=== PATIENT | female | born 1955 | race Caucasian/White ===

== ENCOUNTER 2024-01-13 18:33 | Emergency (ER) | payer MEDICARE, SELFPAY ==
[2024-01-13] VITALS (14 sets, daily range): BP systolic 128–145; BP diastolic 70–82; PULSE 87–96; RESP 18; TEMP 36.9; O2SAT 95–99; BMI 27.4
--- NOTE | 2024-01-13 18:47 | ED_ITS ---
HPI - General Adult General Date Seen: 01/13/24 Chief complaint: Shortness of Breath/Dyspnea Stated complaint: Shortness of breath, elevated d dimer Time Seen by Provider: 01/13/24 18:42 History of Present Illness HPI narrative: 68-year-old female who has a history of hypertension, hypothyroidism, depression, sensorineural hearing loss who is sent to the ER today for abnormal D-dimer. She was evaluated in her primary clinic ([facility], Dr. Clements) yesterday for symptoms of chest tightness, back tightness, shortness of breath that have actually been ongoing since September. Lab workup today showed an abnormal D-dimer so she was referred to the ER. Per medical record-through [facility] care link This all started the beginning of the year. Has a heaviness in chest with shortness of breath. Neck is hurting all the time. Shoulders are hurting. This is happening every day. Takes 2 tylenol in the mornings. Has been having headaches as well. Gets numbness in side of face sometimes as well. Sometimes has a hard time walking. Seems to have a lot of stress in life Goldie Artis is a 68 y.o. female with a history of hypertension, hypothyroidism, and depression, who presents for chest heaviness and shortness of breath intermittently over the last several months but slowly becoming more persistent and noticeable, now starting to be a little bit exertional at times as well. Occasionally she will get sharp pains in her chest but these generally are not exertional. She also continues to have a neck ache that almost feels stiff like she slept wrong. However she will also have discomfort over the back of both of her shoulders and upper back that sometimes radiate into her neck and head. At times she will have a tingling sensation in her facial cheeks that can radiate into her jaw and arms but this seems random and can switch between right and left side. Occasionally she will get a little dizzy and lightheaded. She also will have intermittent headaches at times. She denies any change in vision or speech, weakness in her extremities, or any other neurologic symptoms at this time. Denies any increased leg swelling. She denies any history of asthma, COPD, or tobacco use. ? [place] because she also care takes for her with Alzheimer's. She also recently was caring for her sister who also has Alzheimer's at her house, and this was for a couple of months and she just left their house. She admits to a lot of physical labor and also a lot of stress. ? She does have 2 younger brothers who both had 95% plus blocked arteries, she thinks perhaps in their carotid. One of them drinks alcohol and the other smokes. Her dad had open heart surgery and valve replacement around age 75. Her mom has had strokes. Her grandmother from cardiac cause. ... Labs showed: WBC 8.3, hemoglobin 13.5, platelet count 315 D-dimer 1.5 ProBNP 134 Symptoms are not consistent with an acute cardiac etiology at this time. Patient is reassured. However, I am concerned for possible underlying cardiac cause though other considerations would be pulmonary embolism, anemia, stress/depression, musculoskeletal causes, among others. Fortunately she is hemodynamically stable here today, blood pressure seems to be well-controlled, and she reports good O2 saturation at home as well. EKG reveals NSR and appears unchanged from last EKG today. Overall this is all reassuring Was referred to ER for abnormal D Dimer Related Data Home Medications Medication Instructions Recorded Confirmed aspirin 81 mg capsule 81 mg PO DAILY 01/13/24 01/13/24 atenolol 100 mg tablet 100 mg PO DAILY 01/13/24 01/13/24 calcium 600 mg capsule 600 mg PO DAILY 01/13/24 01/13/24 cholecalciferol (vitamin D3) 25 25 mcg PO DAILY 01/13/24 01/13/24 mcg (1,000 unit) capsule (Vitamin D3) levothyroxine 50 mcg tablet 50 mcg PO QAM 01/13/24 01/13/24 lisinopril 20 mg tablet 20 mg PO DAILY 01/13/24 01/13/24 rosuvastatin 5 mg tablet 5 mg PO QPM 01/13/24 01/13/24 torsemide 20 mg tablet 20 mg PO DAILY 01/13/24 01/13/24 Allergies Allergy/AdvReac Type Severity Reaction Status Date / Time No Known Drug Allergies Allergy Verified 01/13/24 20:00 [facility] Social History Smoking Status: Unknown if ever smoked Exam Const: Vital Signs, click to edit/add: Vital Signs - 24 hr 01/13/24 18:41 01/13/24 18:42 01/13/24 18:43 Temperature 98.5 F Pulse Rate 91 91 Pulse Rate [Pulse Oximeter] 90 Respiratory Rate 18 Blood Pressure 139/77 Blood Pressure [Ri ght Upper Arm] 139/77 Pulse Oximetry 96 97 97 Oxygen Delivery Me thod Room Air 01/13/24 18:45 01/13/24 19:00 01/13/24 19:01 Temperature Pulse Rate 89 90 90 Pulse Rate [Pulse Oximeter] Respiratory Rate Blood Pressure 145/82 H Blood Pressure [Ri ght Upper Arm] Pulse Oximetry 96 97 98 Oxygen Delivery Me thod 01/13/24 19:15 01/13/24 19:30 01/13/24 19:32 Temperature Pulse Rate 89 88 88 Pulse Rate [Pulse Oximeter] Respiratory Rate Blood Pressure 131/71 Blood Pressure [Ri ght Upper Arm] Pulse Oximetry 95 97 97 Oxygen Delivery Me thod 01/13/24 19:33 01/13/24 19:47 01/13/24 20:00 Temperature Pulse Rate 87 96 89 Pulse Rate [Pulse Oximeter] Respiratory Rate Blood Pressure Blood Pressure [Ri ght Upper Arm] Pulse Oximetry 96 97 99 Oxygen Delivery Me thod 01/13/24 20:01 01/13/24 20:15 Temperature Pulse Rate 90 93 Pulse Rate [Pulse Oximeter] Respiratory Rate Blood Pressure 128/70 Blood Pressure [Ri ght Upper Arm] Pulse Oximetry 98 97 Oxygen Delivery Me thod Course Vital Signs Vital signs: Initial Vital Signs Temperature 98.5 F 01/13/24 18:41 Temperature Source Temporal Artery Scan 01/13/24 18:41 Pulse Rate 90 01/13/24 18:41 Respiratory Rate 18 01/13/24 18:41 Blood Pressure 139/77 01/13/24 18:41 Blood Pressure Mean 97 01/13/24 18:41 Blood Pressure Position Semi-Fowlers 01/13/24 18:41 Pulse Oximetry 96 01/13/24 18:41 Oxygen Delivery Method Room Air 01/13/24 18:41 Vital Signs Temperature 98.5 F 01/13/24 18:41 Pulse Rate 90 01/13/24 18:41 Respiratory Rate 18 01/13/24 18:41 Blood Pressure 139/77 01/13/24 18:41 Pulse Oximetry 96 01/13/24 18:41 Oxygen Delivery Method Room Air 01/13/24 18:41 Temperature 98.5 F 01/13/24 18:41 Pulse Rate 93 01/13/24 20:15 Respiratory Rate 18 01/13/24 18:41 Blood Pressure 128/70 01/13/24 20:01 Pulse Oximetry 97 01/13/24 20:15 Oxygen Delivery Method Room Air 01/13/24 18:41 Medications Administered Medications: Discontinued Medications Generic Name Dose Route Start Last Admin Trade Name Baylee PRN Reason Stop Dose Admin Aspirin 162 mg 01/13/24 19:08 01/13/24 19:29 Aspirin 81 Mg Tab.Chew PO 01/13/24 19:09 162 mg ONCE ONE Administration Medical Decision Making MDM Narrative Medical decision making narrative: This patient presents to the ER today for evaluation of chest pain, shortness of breath, neck pain upper back pain ongoing for the past several weeks. She is referred to the ER today by her primary care office because she had an abnormal D-dimer drawn in clinic. Abnormal D-dimer raises concern for possible PE. CT PA is obtained and is fortunately normal. No evidence for PE, pneumonia, pneumothorax, pulmonary edema, pleural effusion, rib fractures. Mediastinum is normal on the CT scan so although this is not a dissection protocol, I think with several weeks of pain, likelihood of aortic dissection would be very low. At this point the risk of radiation and CT contrast associated with a repeat CT scan for aortic protocol would outweigh the benefit. Differential was broad. No evidence of palpitations, syncope or other cardiac dysrhythmia. We considered possible ACS, however workup with EKG and troponin is negative. Given time since onset of symptoms, I do not think the patient needs to be admitted for further sets of enzymes. EKG shows no evidence for pericarditis. Clinical presentation not suggestive of myocarditis. She is already scheduled for a treadmill stress echo through the [facility] next week. She will keep that appointment. Discussed the risk 1 stable angina and she will return to the ER for any worsening symptoms occur. No wheezing or bronchospasm to suggest COPD/asthma. No signs of chest wall cellulitis, shingles, injury. She does endorse substantial psychosocial stressors in her life so summer symptoms might be stress related, she believes. Incidental note is made of an axillary lymph node on the CT scan. She will follow-up with the [facility] office for recheck of her axillary lymph node. With reasonable clinical confidence, I think the patient is safe for outpatient follow up. Discussed return precautions. Questions answered. Patient voices comfort with the plan. Lab Data Labs: Lab Results 01/13/24 01/13/24 Range/Units 19:00 19:17 Sodium 140 (135-149) mmol/L Potassium 4.1 (3.6-5.1) mmol/L Chloride 100 (96-114) mmol/L Carbon Dioxide 28 (20-32) mmol/L Anion Gap 12 (7-15) mEq/L BUN 19 (7-30) mg/dL Creatinine 0.9 (0.5-1.5) mg/dL Estimated Creat Clear 49.70 Estimated GFR 69 ml/min Glucose 99 (60-115) mg/dL Calcium 9.4 (8.4-10.6) mg/dL Troponin I < 0.01 L (0.01-0.04) ng/mL POC Creatinine 1.2 (0.6-1.3) mg/dl Imaging Data CT scan - chest: Attestation: I have reviewed the pertinent imaging results. Radiologist's impression: IMPRESSION: No pulmonary embolism. No focal consolidations. Mildly prominent left axillary lymph node measuring 10 millimeters. Recommend clinical correlation. Discharge Plan Discharge Clinical Impression: Chronic dyspnea, Axillary adenopathy, Neck pain Patient Disposition: Home, Self-Care Condition: Stable Instructions: Lymphadenopathy (ED), Dyspnea (ED), Neck Pain (ED) Additional Instructions: The CT scan today looks good. You do not have any pneumonia, collapsed lung, or any signs of blood clots in your lung. The CT scan does show a lymph node in your left armpit. The cause of this is unclear. It could be real a reaction to a recent infection. Please follow-[facility] to have it rechecked. If you have worsening discomfort in your chest, trouble breathing, or any concerns, please come back to the ER right away. Please see your doctor line now within the next 3-5 days for recheck. Ask your doctor to arrange a stress test for your heart. Prescriptions: No Action torsemide 20 mg tablet 20 mg PO DAILY atenolol 100 mg tablet 100 mg PO DAILY lisinopril 20 mg tablet 20 mg PO DAILY levothyroxine 50 mcg tablet 50 mcg PO QAM rosuvastatin 5 mg tablet 5 mg PO QPM calcium 600 mg capsule 600 mg PO DAILY aspirin 81 mg capsule 81 mg PO DAILY cholecalciferol (vitamin D3) [Vitamin D3] 25 mcg (1,000 unit) capsule 25 mcg PO DAILY Follow Up/Referrals: Adri Davis MD [Primary Care Provider] - Stand Alone Forms: [employer] Info Instructions
--- NOTE | 2024-01-13 19:08 | CT_ITS ---
Patient: GINETTE DUNNE Facility:?[facility] Patient ID:?[id number] Site Patient ID:?[id number]. Site :?[id number] Study:?CT-Chest PE PROT 95ML ISOVUE 370-01/13/2024 7:57:25 PM Ordering Physician:?DR ANTONIO Final Report: INDICATION: Chest pain, back pain, abnormal D-dimer. TECHNIQUE: CT chest PE was acquired with 95 cc Isovue 370 IV contrast. COMPARISON: None. FINDINGS: Heart and vasculature: Contrast opacification of the pulmonary arterial tree is adequate. No sign of pulmonary embolism. Heart size is normal. Thoracic aorta and pulmonary artery are normal in caliber. Lungs and pleura: No suspicious nodules or infiltrates. Scattered atelectasis. No pleural effusions, pleural thickening, or pneumothorax. Lymph nodes/mediastinum: Mildly prominent left axillary lymph node measuring 10 millimeters (series 5/image 49). Otherwise no mediastinal, hilar, or axillary adenopathy. Chest wall: No masses. Upper abdomen: No acute or significant findings. Bones: Unremarkable for age. IMPRESSION: No pulmonary embolism. No focal consolidations. Mildly prominent left axillary lymph node measuring 10 millimeters. Recommend clinical correlation. Please note that all CT scans at this facility use dose modulation, iterative reconstruction, and/or weight-based dosing when appropriate to reduce radiation dose to as low as reasonably achievable. Dictated by Joe Cisneros MD @ 01/13/2024 8:11:16 PM Signed by:?Joe Cisneros MD @01/13/2024 8:11:16 PM (Electronic Signature)
[2024-01-13 19:18] LABS: Creatinine, Point-of-Care* 1.2 mg/dl (0.6-1.3)
[2024-01-13] MEDS: ASPIRIN 81 MG TAB.CHEW 162 MG PO (19:29)
[2024-01-13 19:37] LABS: Chloride* 100 mmol/L (96-114)
[2024-01-13 19:38] LABS: Potassium* 4.1 mmol/L (3.6-5.1); Sodium* 140 mmol/L (135-149)
[2024-01-13 19:41] LABS: Anion Gap 12 mEq/L (7-15); Blood Urea Nitrogen* 19 mg/dL (7-30); Calcium* 9.4 mg/dL (8.4-10.6); Carbon Dioxide* 28 mmol/L (20-32); Creatinine* 0.9 mg/dL (0.5-1.5); Estimated Glomerular Filt Rate 69 ml/min; Glucose* 99 mg/dL (60-115)
[2024-01-13 19:54] LABS: Troponin I* < 0.01 ng/mL (0.01-0.04)
--- NOTE | 2024-01-22 16:20 | ED_ITS ---
HPI - General Adult General Date Seen: 01/13/24 Chief complaint: Shortness of Breath/Dyspnea Stated complaint: Shortness of breath, elevated d dimer Time Seen by Provider: 01/13/24 18:42 History of Present Illness HPI narrative: This note is an addendum to my ER chart from 01/13/2024. I inadvertently omitted my physical exam from my previous note. Related Data Home Medications Medication Instructions Recorded Confirmed aspirin 81 mg capsule 81 mg PO DAILY 01/13/24 01/13/24 atenolol 100 mg tablet 100 mg PO DAILY 01/13/24 01/13/24 calcium 600 mg capsule 600 mg PO DAILY 01/13/24 01/13/24 cholecalciferol (vitamin D3) 25 25 mcg PO DAILY 01/13/24 01/13/24 mcg (1,000 unit) capsule (Vitamin D3) levothyroxine 50 mcg tablet 50 mcg PO QAM 01/13/24 01/13/24 lisinopril 20 mg tablet 20 mg PO DAILY 01/13/24 01/13/24 rosuvastatin 5 mg tablet 5 mg PO QPM 01/13/24 01/13/24 torsemide 20 mg tablet 20 mg PO DAILY 01/13/24 01/13/24 Allergies Allergy/AdvReac Type Severity Reaction Status Date / Time No Known Drug Allergies Allergy Verified 01/13/24 20:00 [facility] Social History Smoking Status: Unknown if ever smoked Exam Narrative: Exam Narrative: Constitutional: Appears well-developed and well-nourished. Alert. Conversant. Non toxic. HENT: Head: Atraumatic. Nose: Nose normal. Mouth/Throat: Oral mucosa is clear and moist. no trismus. Eyes: Conjunctivae normal. EOM normal. Pupils equal, round, and reactive to light. No scleral icterus. Neck: Normal range of motion. Neck supple. No tracheal deviation present. No JVD Cardiovascular: Normal rate, regular rhythm. No gallop. No friction rub. No murmur heard. Symmetric radial artery pulses Pulmonary/Chest: Effort normal. No stridor. No respiratory distress. No wheezes. No rales. No rhonchi . No tenderness. Abdominal: Soft.No distension. No mass. No tenderness. No rebound. No guarding. Musculoskeletal: RUE: Normal range of motion. No tenderness. No deformity LUE: Normal range of motion. No tenderness. No deformity RLE: Normal range of motion. No edema. No tenderness. No deformity LLE: Normal range of motion. No edema. No tenderness. No deformity Neurological: Alert and oriented to person, place, and time. Normal strength. CN II-VII intact. No sensory deficit. GCS eye subscore is 4. GCS verbal subscore is 5. GCS motor subscore is 6. Normal coordination Skin: Skin is warm and dry. No rash noted. No pallor. Normal capillary refill. Psychiatric: Normal mood. Normal affect. Course Vital Signs Vital signs: Initial Vital Signs Temperature 98.5 F 01/13/24 18:41 Temperature Source Temporal Artery Scan 01/13/24 18:41 Pulse Rate 90 01/13/24 18:41 Respiratory Rate 18 01/13/24 18:41 Blood Pressure 139/77 01/13/24 18:41 Blood Pressure Mean 97 01/13/24 18:41 Blood Pressure Position Semi-Fowlers 01/13/24 18:41 Pulse Oximetry 96 01/13/24 18:41 Oxygen Delivery Method Room Air 01/13/24 18:41 Vital Signs Temperature 98.5 F 01/13/24 18:41 Pulse Rate 90 01/13/24 18:41 Respiratory Rate 18 01/13/24 18:41 Blood Pressure 139/77 01/13/24 18:41 Pulse Oximetry 96 01/13/24 18:41 Oxygen Delivery Method Room Air 01/13/24 18:41 Temperature 98.5 F 01/13/24 18:41 Pulse Rate 93 01/13/24 20:15 Respiratory Rate 18 01/13/24 18:41 Blood Pressure 128/70 01/13/24 20:01 Pulse Oximetry 97 01/13/24 20:15 Oxygen Delivery Method Room Air 01/13/24 18:41 Medications Administered Medications: Discontinued Medications Generic Name Dose Route Start Last Admin Trade Name Freq PRN Reason Stop Dose Admin Aspirin 162 mg 01/13/24 19:08 01/13/24 19:29 Aspirin 81 Mg Tab.Chew PO 01/13/24 19:09 162 mg ONCE ONE Administration Medical Decision Making Lab Data Labs: Lab Results 01/13/24 01/13/24 Range/Units 19:00 19:17 Sodium 140 (135-149) mmol/L Potassium 4.1 (3.6-5.1) mmol/L Chloride 100 (96-114) mmol/L Carbon Dioxide 28 (20-32) mmol/L Anion Gap 12 (7-15) mEq/L BUN 19 (7-30) mg/dL Creatinine 0.9 (0.5-1.5) mg/dL Estimated Creat Clear 49.70 Estimated GFR 69 ml/min Glucose 99 (60-115) mg/dL Calcium 9.4 (8.4-10.6) mg/dL Troponin I < 0.01 L (0.01-0.04) ng/mL POC Creatinine 1.2 (0.6-1.3) mg/dl Discharge Plan Discharge Clinical Impression: Chronic dyspnea, Axillary adenopathy, Neck pain Patient Disposition: Home, Self-Care Condition: Stable Instructions: Lymphadenopathy (ED), Dyspnea (ED), Neck Pain (ED) Additional Instructions: The CT scan today looks good. You do not have any pneumonia, collapsed lung, or any signs of blood clots in your lung. The CT scan does show a lymph node in your left armpit. The cause of this is unclear. It could be real a reaction to a recent infection. Please follow-up with your [facility] to have it rechecked. If you have worsening discomfort in your chest, trouble breathing, or any concerns, please come back to the ER right away. Please see your doctor line now within the next 3-5 days for recheck. Ask your doctor to arrange a stress test for your heart. Prescriptions: No Action torsemide 20 mg tablet 20 mg PO DAILY atenolol 100 mg tablet 100 mg PO DAILY lisinopril 20 mg tablet 20 mg PO DAILY levothyroxine 50 mcg tablet 50 mcg PO QAM rosuvastatin 5 mg tablet 5 mg PO QPM calcium 600 mg capsule 600 mg PO DAILY aspirin 81 mg capsule 81 mg PO DAILY cholecalciferol (vitamin D3) [Vitamin D3] 25 mcg (1,000 unit) capsule 25 mcg PO DAILY Follow Up/Referrals: Adri Davis MD [Primary Care Provider] - Stand Alone Forms: [employer] Info Instructions
== END 2024-01-13 20:45 | disposition home or self-care (01) ==
PROVIDERS: Emergency Provider Emergency Medicine; PCP Family Medicine
DX: R59.0 Localized enlarged lymph nodes (principal); M54.2 Cervicalgia; R06.00 Dyspnea, unspecified
CPT/HCPCS: 36415; 71275; 80048; 82565; 84484; 93005; 99283; 99284; 99285; A9270; Q9967

== ENCOUNTER 2024-07-25 17:41 | Emergency (ER) | payer MEDICARE, SELFPAY ==
[2024-07-25 18:02] VITALS: BP 154/81; PULSE 64; RESP 18; TEMP 36.4; O2SAT 96; BMI 29.1
--- NOTE | 2024-07-25 18:27 | ED_ITS ---
HPI - Animal Bite General Time Seen by Provider: 18:27 Date Seen: 07/25/24 Chief Complaint: Animal Bite Stated Complaint: left hand lac Time Seen by Provider: 07/25/24 18:27 Source: patient, family and old records reviewed Mode of arrival: ambulatory Limitations: no limitations History of Present Illness HPI narrative: Goldie is a very pleasant 69-year-old female with not an up-to-date tetanus per her report who comes to the emergency room after experiencing a dog bite. Patient was noted to have 2 dogs at home that were fighting during feeding. She went to break them up and the dog bit her in the left hand. She shows me a picture of this and she has a lot of swelling in this area on the back of her left hand. She is able to move her fingers without difficulty. I initially see Goldie in the waiting room because our senses in the ED is high. She eventually is moved to room 1. We removed the bandage and she has a large a superficial flap tear on the dorsum of her left hand. She is able to flex and extend her fingers. She is able to make a fist. The dog that bit her is alone by herself and immunizations were updated in October of this year. She currently lives in [place] in [facility]. Related Data Home Medications ?Medication ?Instructions ?Recorded ?Confirmed aspirin 81 mg capsule 81 mg PO DAILY 01/13/24 01/13/24 atenolol 100 mg tablet 100 mg PO DAILY 01/13/24 01/13/24 calcium 600 mg capsule 600 mg PO DAILY 01/13/24 01/13/24 cholecalciferol (vitamin D3) 25 25 mcg PO DAILY 01/13/24 01/13/24 mcg (1,000 unit) capsule (Vitamin D3) levothyroxine 50 mcg tablet 50 mcg PO QAM 01/13/24 01/13/24 lisinopril 20 mg tablet 20 mg PO DAILY 01/13/24 01/13/24 rosuvastatin 5 mg tablet 5 mg PO QPM 01/13/24 01/13/24 torsemide 20 mg tablet 20 mg PO DAILY 01/13/24 01/13/24 Allergies Allergy/AdvReac Type Severity Reaction Status Date / Time No Known Drug Allergies Allergy Verified 01/13/24 20:00 Review of Systems Status of ROS: Reports: 6 or more systems reviewed and unremarkable except as noted in History and below PFSH PFSH Social History Smoking Status: Unknown if ever smoked Exam Narrative: Exam Narrative: Goldie is alert and oriented. She is very pleasant woman in no acute distress. No respiratory distress. Examination of the left hand shows a large your regular superficial skin tear half [place] measuring in total approximately 5 cm laceration. The edges are jagged. There are other superficial lacerations that are open gaping approximately 1 mm. No foreign bodies are noted. Gently I do peel back the flap and there is more skin that has curled up underneath. We were able to pull back the flap and irrigate copiously. Again no foreign bodies are noted. I then replaced the skin and actually it has come back to be very well-approximated although there is multiple irregular laceration within the skin edges. I then placed Steri-Strips around the area and there is good wound approximation. Patient is able to flex and extend her fingers and make a fist. No underlying a discomfort with these actions. Const: Vital Signs, click to edit/add: Vital Signs - 24 hr 07/25/24 18:02 Temperature 97.6 F Pulse Rate [Pulse Oximeter] 64 Respiratory Rate 18 Blood Pressure [Ri ght Upper Arm] 154/81 H Pulse Oximetry 96 Oxygen Delivery Me thod Room Air Documenting provider has reviewed patient's vital signs: yes Course Course ED Course: At this time I am pleasantly surprised that we were able to reapproximate the wound. The edges are very irregular. Given that this is an antibiotic bowl bite I would not recommend an occlusive dressing or gluing of this area. I would also recommend against suturing as this skin is very fragile and I do think that the stitches would pull through. We able to get very good wound approximation with the use of Steri-Strips. Given patient's exam do not feel the need to x-ray hand. There is no evidence of significant crush injury or foreign body. Vital Signs Vital signs: Initial Vital Signs Temperature 97.6 F 07/25/24 18:02 Temperature Source Temporal Artery Scan 07/25/24 18:02 Pulse Rate 64 07/25/24 18:02 Respiratory Rate 18 07/25/24 18:02 Blood Pressure 154/81 H 07/25/24 18:02 Blood Pressure Mean 105 07/25/24 18:02 Pulse Oximetry 96 07/25/24 18:02 Oxygen Delivery Method Room Air 07/25/24 18:02 Vital Signs Temperature 97.6 F 07/25/24 18:02 Pulse Rate 64 07/25/24 18:02 Respiratory Rate 18 07/25/24 18:02 Blood Pressure 154/81 H 07/25/24 18:02 Pulse Oximetry 96 07/25/24 18:02 Oxygen Delivery Method Room Air 07/25/24 18:02 Temperature 97.6 F 07/25/24 18:02 Pulse Rate 64 07/25/24 18:02 Respiratory Rate 18 07/25/24 18:02 Blood Pressure 154/81 H 07/25/24 18:02 Pulse Oximetry 96 07/25/24 18:02 Oxygen Delivery Method Room Air 07/25/24 18:02 Medications Administered Medications: Discontinued Medications Generic Name Dose Route Start Last Admin Trade Name Freq PRN Reason Stop Dose Admin Diphtheria/Tetanus/Acell Pertussis 0.5 ml 07/25/24 19:09 07/25/24 19:22 Tetanus/Diphth/Pertussis 0.5 Ml Syringe IM 07/25/24 19:10 0.5 ml .ONCE ONE Administration MDM - Animal Bite MDM Narrative Medical decision making narrative: 1. Left hand laceration-much improved after placement of Steri-Strips. Will need to monitor for infection. Given that this was a dog bite will start patient on Augmentin 875 p.o. b.i.d. for 7 days. Seek medical attention for signs and symptoms of infection. Recommend leaving this open to air unless busy with work and then I would cover this. As Steri-Strips start to peel gently cut these away and replace as needed. [facility] has been in contact with our nursing staff and will follow-up with patient. Patient recommended to monitor dog and for odd behavior seek medical attention. 2. Tetanus update-patient agreeable to Tdap which has been ordered and given today. 3. Disposition-home at this time. Return for worsening symptoms and as needed. Discharge Plan Discharge Clinical Impression: Dog bite, Tetanus Instructions: Animal Bite (ED) Additional Instructions: Keep Steri-Strips in place as long as possible. If the edges curl up you may use the scissors to gently trim the back. Limit movement at the wrist or fingers so that this wound does not pull apart. Start antibiotic tonight which is available in our [facility] machine. Monitor your animal for any strange behavior. Return to the emergency room for infection and worsening symptoms. Prescriptions: No Action torsemide 20 mg tablet 20 mg PO DAILY atenolol 100 mg tablet 100 mg PO DAILY lisinopril 20 mg tablet 20 mg PO DAILY levothyroxine 50 mcg tablet 50 mcg PO QAM rosuvastatin 5 mg tablet 5 mg PO QPM calcium 600 mg capsule 600 mg PO DAILY aspirin 81 mg capsule 81 mg PO DAILY cholecalciferol (vitamin D3) [Vitamin D3] 25 mcg (1,000 unit) capsule 25 mcg PO DAILY Follow Up/Referrals: Adri Davis MD [Primary Care Provider] -
[2024-07-25] MEDS: TETANUS/DIPHTH/PERTUSSIS 0.5 ML SYRINGE IM (19:22)
== END 2024-07-25 19:30 | disposition home or self-care (01) ==
PROVIDERS: Emergency Provider Family Medicine; PCP Family Medicine
DX: S61.412A Laceration without foreign body of left hand, initial encounter (principal); Z23 Encounter for immunization; W54.0XXA Bitten by dog, initial encounter
CPT/HCPCS: 12002; 90471; 90715; 99283; 99284